=== PATIENT | male | born 1960 | race African-American/Black ===

== ENCOUNTER 2016-08-08 10:53 | Observation (INO) | payer OTHER ==
--- NOTE | ~2016-08-08 | DS ---
Unit #: [id number] #: [id number] Patient: JEFF RODRIGUEZ [id number] [facility]. [place], [place] [address] [id number] MR#: [id number] NAME: JEFF RODRIGUEZ ROOM: [facility] Age: 55 Sex: M Admission Date: 08/08/2016 : 1960 Discharge Date: 08/09/2016 Attending Physician: Jey Velazco M.D. Primary Care Physician: Millicent Iglesias M.D. DISCHARGE SUMMARY ADMISSION DIAGNOSES 1. Rhabdomyolysis. 2. Hypercholesterolemia. 3. Hypertension. HOSPITAL COURSE The patient is a 55-year-old male who presents to [facility] at the behest of his primary care provider secondary to abnormal laboratories. The patient was noted to have an elevated CK level and repeat at this facility resulted in a value of 11,256. The patient was without complaints otherwise. He denies any muscle weakness. He does state, in fact, he has been feeling well and working out recently. The patient has a history of hyperlipidemia and until recently had been on two medications for his cholesterol. One of those medications had recently been stopped and he is unsure of the name of the medication; however, he states he has been on both Crestor and Lipitor in the past. At this time, he takes Zetia only. Given the propensity for both statins and Zetia to cause rhabdomyolysis, I have asked the patient to stop his Zetia. It sounds like his statin was stopped by his primary care provider. The patient's CK has fallen from 11,000 to 5500 with fluids. The patient states he feels well and given discontinuation of his medication, his CK will likely continue to fall. He is being discharged at this time with an order for a repeat CK on 08/11/2016. The patient states he will report to his doctors (Dr. Laura Iglesias) office to have these laboratories done on Thursday. DISCHARGE MEDICATIONS 1. Norvasc 5 mg daily. 2. Aspirin 81 mg daily. 3. Protonix 40 mg daily. 4. Vitamin B12 1000 mcg daily. FOLLOWUP As mentioned above, the patient is to follow up with a CK check on 08/11/2016 and follow up with his primary care provider afterward. Unit #: [id number] #: [id number] Patient: JEFF RODRIGUEZ Dictated by... Patel Mendosa/rosa TD: 08/11/2016 23:46 JOB #: [id number] DISCHARGE SUMMARY Page 1 of 1 X Jey Velazco MD X DISCHARGE SUMMARY
--- NOTE | ~2016-08-08 | HP ---
Unit #: [id number] #: [id number] Patient: JEFF RODRIGUEZ [id number] [address] [address] [id number] MR#: [id number] NAME: JEFF RODRIGUEZ ROOM: [address] Age: 55 Sex: M Admission Date: 08/08/2016 : 1960 Attending Physician: Virginie Kurtz M.D. Primary Care Physician: Millicent Iglesias M.D. HISTORY AND PHYSICAL CHIEF COMPLAINT Abnormal labs. HISTORY OF PRESENT ILLNESS The patient is a 55-year-old male with a history of a hyperlipidemia and statin, brought to the emergency room with the abnormal labs. The patient had the blood work at the PCPs office yesterday and was told to come to the emergency room for the abnormal labs. The patient had a blood work here in the hospital and that showed the CK level of 11,500. The patient is being admitted for the above reasons. The patient denies any muscle pain, any chest pain, nausea or vomiting, diarrhea, headache. PAST MEDICAL HISTORY History of a hyperlipidemia. PAST SURGICAL HISTORY Colonoscopy, fatty cyst removed. HOME MEDICATIONS Patient takes cholesterol meds. ALLERGIES No known drug allergies. SOCIAL HISTORY No history of tobacco, drinks four beers daily, no illicit drug abuse. FAMILY HISTORY Reviewed. PHYSICAL EXAMINATION GENERAL APPEARANCE: On examination the patient is lying on a bed not in acute distress. VITAL SIGNS: Temperature 98.3, pulse 95, respiratory rate 16, blood pressure 124/86, sating 99% at room air. HEENT: Head atraumatic/normocephalic. Pupils equal, round and reacting to light and accommodation. Extraocular movements are intact. NECK: Supple. LUNGS: Decreased air entry at the bases. HEART: Regular rate and rhythm. ABDOMEN: Soft, positive bowel sounds. EXTREMITIES: No cyanosis. No clubbing. NEUROLOGIC: Awake, alert and oriented. No gross focal motor deficit. Unit #: [id number] #: [id number] Patient: JEFF RODRIGUEZ DIAGNOSTIC STUDIES LABORATORY DATA: WBC 4.8, hemoglobin 11.7, hematocrit 35.7, platelets 242, sodium 137, potassium 3.9, chloride 105, bicarb 26, glucose 100, BUN 15, creatinine 1, calcium is 9.2, AST 181, ALT was 70, alkaline phosphatase 56, CK level is 11,256. ASSESSMENT 1. Rhabdomyolysis. 2. Hyperlipidemia. 3. Alcohol abuse. PLAN Plan to admit the patient to the observation with the telemetry and continue with the IV fluids of normal saline 150 mL per hour and hold the statin. I will check the urine toxicology and repeat the labs again in the morning. Dictated by Patel Jones/zoran TD: 08/08/2016 15:49 JOB #: [id number] HISTORY AND PHYSICAL Page 1 of 1 X VIRGINIE KURTZ MD X HISTORY AND PHYSICAL
[~2016-08-08 10:53] MED LIST: B-121000 MC3 PO; CRESTOR PO; DEXILANT60 MG PO; FISH OIL 1,0001 CAP PO; GLUCOSAMINE DA1 EACH PO; LIPITOR40 MG; LORTAB 5/500 TA1 TA1 PO; NATURAL VITA400 UNI2 PO; ONE DAILY 50 PL1 TA1 PO; PRILOSEC20 M1; PRILOSEC40 MG PO; VITAMIN B12-FO1 EACH PO; ZETIA PO
[2016-08-08 11:43] LABS: EOSINOPHIL# 0.1 X10e3 (0-0.7); EOSINOPHIL% 2.7 % (0.0-7.0); HEMATOCRIT 35.7 % (38.0-50.0); HEMOGLOBIN 11.7 gm/dL (13.0-16.0); LYMPHOCYTE# 1.1 X10e3 (1.0-3.5); LYMPHOCYTE% 23.1 % (17.0-45.0); MEAN CELL VOLUME 84.7 FL (83-96); MEAN CORPUSCULAR HEMOGLOBIN 27.7 PG (28-34); MEAN CORPUSCULAR HGB CONC 32.7 g/dL (30-36); MEAN PLATELET VOLUME 6.9 FL (6.5-11.5); MONOCYTE# 0.5 X10e3 (0-1.0); MONOCYTE% 9.7 % (3.0-12.0); NEUTROPHIL% 63.5 % (40-75); PLATELET COUNT 242 X10e3 (140-420); RED BLOOD COUNT 4.21 X10e (3.90-5.60); RED CELL DISTRIBUTION WIDTH 13.5 % (11.0-15.5); WHITE BLOOD COUNT 4.8 X10e3 (4.0-10.5)
[2016-08-08 12:21] LABS: ALBUMIN SERUM 4.1 g/dL (3.5-5.0); BILIRUBIN, DIRECT 0.1 mg/dL (0.0-0.2); BILIRUBIN,INDIRECT 0.7 mg/dL (0.0-0.9); BILIRUBIN,TOTAL 0.8 mg/dL (0.2-2.0); CALCIUM SERUM 9.2 mg/dL (8.4-10.2); GLOM FILT RATE Estimated 96.4 mL/min (>60); POTASSIUM 3.9 mmol/L (3.5-5.1); PROTEIN TOTAL SERUM 7.6 g/dL (6.0-8.3)
[2016-08-08 12:28] LABS: DIFF IND NO
[2016-08-08] MEDS ORDERED: AMLODIPINE BESYL5 MG PO (15:02)
[2016-08-08] MEDS ORDERED: ZETIA PO (15:02)
[2016-08-08] MEDS ORDERED: OMEPRAZOLE40 M1 PO (15:02)
[2016-08-08] MEDS ORDERED: B-121000 MC3 PO (15:03)
[2016-08-08] MEDS ORDERED: LOW DOSE ASPIRI81 M1 PO (15:03)
[2016-08-08 15:57] LABS: AMPHETAMINE NEG (NEG); BARBITURATES NEG (NEG); BENZODIAZEPINES NEG (NEG); COCAINE NEG (NEG); MARIJUANA NEG (NEG); OPIATES NEG (NEG); TRICYCLIC ANTIDEPRESSANTS NEG (NEG); U METHADONE NEG (NEG)
[2016-08-09 05:19] LABS: EOSINOPHIL# 0.2 X10e3 (0-0.7); EOSINOPHIL% 5.7 % (0.0-7.0); HEMATOCRIT 34.2 % (38.0-50.0); HEMOGLOBIN 10.6 gm/dL (13.0-16.0); LYMPHOCYTE# 1.5 X10e3 (1.0-3.5); LYMPHOCYTE% 36.7 % (17.0-45.0); MEAN CELL VOLUME 85.7 FL (83-96); MEAN CORPUSCULAR HEMOGLOBIN 26.7 PG (28-34); MEAN CORPUSCULAR HGB CONC 31.2 g/dL (30-36); MEAN PLATELET VOLUME 7.1 FL (6.5-11.5); MONOCYTE# 0.6 X10e3 (0-1.0); MONOCYTE% 14.6 % (3.0-12.0); NEUTROPHIL# 1.8 X10e3 (1.5-7.1); PLATELET COUNT 218 X10e3 (140-420); RED BLOOD COUNT 3.99 X10e (3.90-5.60); RED CELL DISTRIBUTION WIDTH 13.6 % (11.0-15.5); WHITE BLOOD COUNT 4.2 X10e3 (4.0-10.5)
[2016-08-09 05:27] LABS: DIFF IND NO
[2016-08-09 06:34] LABS: BUN/CREATININE RATIO 14.44; CALCIUM SERUM 8.4 mg/dL (8.4-10.2); CREATININE SERUM 0.9 mg/dL (0.6-1.4); GLOM FILT RATE Estimated 109.5 mL/min (>60); POTASSIUM 3.5 mmol/L (3.5-5.1)
[2016-08-09] MEDS ORDERED: LAB (16:25)
== END 2016-08-09 17:12 | disposition home or self-care (01) | DRG 558 ==
LOC: CED 10:53 → CEDOF 14:27 → CED 15:07 → C5B 18:00 → CEDOF 18:00 → C5B 08-09 06:01
PROVIDERS: Emergency Medicine; Internal Medicine
DX: M62.82 Rhabdomyolysis (principal); E78.00 Pure hypercholesterolemia, unspecified; E78.5 Hyperlipidemia, unspecified; I10 Essential (primary) hypertension; F10.10 Alcohol abuse, uncomplicated
CPT/HCPCS: 36415; 80048; 80076; 80307; 82550; 85025; 94760; 96360; 96372; 99284; G0378; J1650